=== PATIENT | female | born 1980 | race Caucasian/White ===

== ENCOUNTER → 2020-10-15 00:40 | Outpatient (CLI) | payer OTHER, SELFPAY ==
[2020-10-15 18:53] LABS: SARS-CoV-2 RNA PCR Negative
== END ==
PROVIDERS: PCP Family Medicine; Visit Provider Surgery Plastic and Reconstructive Surgery
DX: Z01.812 Encounter for preprocedural laboratory examination (principal); Z20.822 Contact with and (suspected) exposure to COVID-19
CPT/HCPCS: C9803; U0003; U0005

== ENCOUNTER 2020-10-18 01:23 | Day surgery (SDC) | payer OTHER, SELFPAY ==
[2020-10-10 15:11] VITALS: BMI 21.6
--- NOTE | 2020-10-17 08:01 | WPDANESEPPF ---
Anes - Initial Pre Proc Eval Procedure: Operation Date: 10/18/20 07:30 Proposed Procedures p Abdominoplasty - Tavo Stanton MD Date/Time: 10/17/20 08:01 Surgeon: Tavo Stanton MD Pre Op Diagnosis: skin laxity Patient Data Age: 40 Gender: F Height: 1.69 m Weight: 61.69 kg Allergies Allergy/AdvReac Type Severity Reaction Status Date / Time buspirone Allergy Intermediate vomiting Verified 10/18/20 06:36 Home Medications Medication Instructions Recorded Confirmed Type bupropion HCl 75 mg tablet 75 mg PO BID #60 tablet 08/24/20 10/10/20 Rx dextroamphetamine-amphetamine 10 10 mg PO BID #60 tablet 08/24/20 10/10/20 Rx mg tablet alprazolam 0.25 mg tablet 0.25 mg PO TID PRN #90 tablet 09/28/20 10/10/20 Rx docusate sodium 100 mg capsule 100 mg PO DAILY #14 cap 10/03/20 10/10/20 Rx ondansetron HCl 4 mg tablet 4 mg PO Q8H #28 tablet 10/03/20 10/10/20 Rx carisoprodol 350 mg tablet 350 mg PO TID PRN #21 tablet 10/05/20 10/10/20 Rx oxycodone-acetaminophen 5 mg-325 1 tablet PO Q6H PRN #15 tablet 10/05/20 10/10/20 Rx mg tablet Patient hx anesthesia problems: none Family hx anesthesia problems: none PMFSH Past Medical History Medical History (Updated 10/17/20 @ 08:02 by Parmjit Cowart DO) ADD (attention deficit disorder) without hyperactivity Anxiety PONV (postoperative nausea and vomiting) Surgical History Surgical History (Updated 10/17/20 @ 08:02 by Parmjit Cowart DO) History of breast augmentation Social History Social History (Updated 10/07/20 @ 13:19 by Adina Payton) Social History: Smoking packs per day: 0.5 Smoking cigarettes per day: 10.0 Years smoked: 2 Smoking pack-years: 1.00 Smoking status: Former smoker Tobacco type: cigarettes Second hand tobacco smoke exposure: No Smoking end date: 08/05/14 Alcohol intake: current Drinks per week: 1 Substance use: never Substance use type: does not use Living arrangements: with family Additional living arrangements comments: AND 3 CHILDREN Gender identity (if verbalized by the patient): Female Spiritual care concerns: No Anes - Eval Final PreProcedure Day of Procedure 10/17/20 08:01 Patient weight: normal Heart: regular rate and rhythm Lungs: clear to auscultation and normal air movement Airway: Mallampati scale class II Neurological: alert and oriented Last oral intake: >/= 8 hours ASA classification: II Emergent: no Anesthetic plan: proceed Anesthesia type and monitoring: general ETT and standard monitoring Informed Consent: The patient's anesthetic plan and its attendant risks and benefits were discussed with the patient/family/POA. Questions were solicited and answers provided to the satisfaction of the patient/family/POA.
[2020-10-18] VITALS (9 sets, daily range): BP systolic 93–120; BP diastolic 58–78; PULSE 67–86; RESP 12–20; TEMP 36.2–36.6; O2SAT 99–100
[2020-10-18 06:45] LABS: Urine Cotinine NEGATIVE
[2020-10-18] MEDS: LACTATED RINGERS 1,000 ML 30 ML IV CONT ×2 (06:54→09:57)
--- NOTE | 2020-10-18 06:54 | WPDHPUPDATE1 ---
History and Physical Update Update Date/Time: 10/18/20 06:54 History and Physical has been reviewed, including an updated exam of the patient. There are NO changes in the patient's condition. Risks, benefits, and alternatives have been discussed and questions answered. Patient agrees to proceed with procedure.
--- NOTE | 2020-10-18 07:07 | PM.PROC ---
Procedure Note - Detailed Date of procedure: 10/18/20 Pre-op diagnosis: skin laxity Post-op diagnosis: same Procedure performed: Progressive tension abdominoplasty Description of procedure: She is here today for abdominoplasty. Previously and again today the risks, benefits, alternatives were discussed in extensive detail. I wanted her to be very realistic about the risks involved as well as expectations. We discussed aftercare and what to monitor for. I was very upfront about the risks of wound breakdown leading to loss of skin, open wounds, and need for additional procedures with permanent abdominal deformity. We discussed DVT/PE risks and management. Made sure answered all of her questions to her satisfaction today and consent was obtained. She was marked in the preoperative holding area with their verification. The patient was taken to the operating room placed supine on the operating table. Anesthesia was provided by anesthesiology. A escalante catheter was started. She was prepped and draped in a standard sterile fashion. A surgical time-out was taken. I placed the patient in a flexed position to verify the upper and lower markings would reach. I then placed her supine. A thorough abdominal examination was completed. Stab incisions were made and used tumescent solution. A 10 blade was used to make the upper incision. I continued dissection down to the level of fascia. Elevated just what was necessary for repair of the diastasis and discontinuous undermining otherwise. I then again flexed the bed to verify the upper skin flap would reach the lower markings without tension. Once verified I placed her supine once again and a 10 blade used to make the lower incision. I elevated up to level the umbilicus and left the umbilicus intact on a well-vascularized stalk. The intervening tissue was removed. A 2 mm blunt cannula and Exparel which was mixed 20 cc in 100 cc for a total volume of 120 cc I injected deep to the fascia bilaterally as well as along the incision lines. I plicated the diastasis recti using 0 PDO stratafix barbed suture. This was in 2 separate layers using 2 separate sutures as well. I repaired around the umbilicus leaving plenty of room for well-vascularized stalk of the umbilicus with 2-0 PDS. The patient was flexed and starting from superior to inferior began plication using 2-0 Vicryl to obliterate all space in a standard progressive tension fashion. At the umbilicus I marked out the location of the skin and inset this with 3-0 Monocryl and 4-0 nylon. I continued the remainder of the plication using 2-0 Vicryl until I reached my lower planned scar line. I trimmed any excess skin of the upper flap making sure this was a tension-free closure. I then approximated using a 3 point suture with 2-0 Vicryl followed by 3-0 stratafix ,running subcuticular 4-0 Monocryl, and tissue glue. Fluffs and an abdominal binder were placed. The patient was transferred to the bed in a flexed position. Awoken and taken to the PACU without difficulty. All instrument and sponge counts were correct at the end of the case. Anesthesia: GLMA Surgeon: Tavo Stanton MD Estimated blood loss (mL): 20 Drains: No Packing: No Pathology: none sent Complications: No immediate complications Condition: stable Disposition: PACU Findings: Tissue removed 808 grams
[2020-10-18] MEDS: SCOPOLAMINE 1.5 MG PATCH TRANSDERM (07:09)
[2020-10-18] MEDS: FAMOTIDINE 20 MG/2 ML VIAL IV PUSH (07:09)
[2020-10-18] MEDS: ceFAZolin 2 GM/D5W 50 ML 2 GM/50 ML BAG IVPB (07:28)
--- NOTE | 2020-10-18 09:41 | SUR.OPER ---
URINE:400cc EBL:75cc
[2020-10-18] MEDS: fentaNYL CITRATE INJ (*CRX) 100 MCG/2 ML VIAL 25 MCG IV PUSH ×3 (10:19→10:29)
[2020-10-18] MEDS: LACTATED RINGERS 1,000 ML 125 ML IV CONT (11:44)
[2020-10-18] MEDS: MORPHINE SULFATE (*CRX) 2 MG/ML INJ IV PUSH ×4 (11:45→23:24)
[2020-10-18] MEDS: carisoprodoL (*CRX) 350 MG TABLET PO ×2 (11:45→17:29)
--- NOTE | 2020-10-18 11:52 | OBPPTRN ---
1103 Patient transferred to post room #285 via bed. Oriented to unit, room, information board, admission packet and security measures. Patient verbalizes understanding.
[2020-10-18] MEDS: oxyCODONE/ACETAMINOPHEN (*CRX) 5-325 MG TABLET PO ×2 (14:59→21:00)
[2020-10-18] MEDS: IBUPROFEN 600 MG TABLET PO (16:14)
[2020-10-18] MEDS: buPROPion HCL 75 MG TABLET PO (17:29)
[2020-10-18] MEDS: ENOXAPARIN 40 MG/0.4 ML SYRINGE SUB-Q (17:29)
[2020-10-18] MEDS: ONDANSETRON INJ 4 MG/2 ML VIAL IV PUSH (20:42)
[2020-10-18] MEDS: DOCUSATE SODIUM 100 MG CAPSULE PO (21:01)
[2020-10-19] VITALS: BP 94/54; PULSE 75; RESP 16; TEMP 36.5; O2SAT 100
[2020-10-19] MEDS: carisoprodoL (*CRX) 350 MG TABLET PO ×2 (00:02→05:48)
[2020-10-19] MEDS: IBUPROFEN 600 MG TABLET PO ×2 (00:03→08:38)
[2020-10-19] MEDS: oxyCODONE/ACETAMINOPHEN (*CRX) 5-325 MG TABLET PO ×2 (03:00→08:38)
[2020-10-19 04:00] VITALS: BP 100/56; PULSE 75; RESP 16; TEMP 36.6; O2SAT 99
[2020-10-19] MEDS: MORPHINE SULFATE (*CRX) 2 MG/ML INJ IV PUSH (04:21)
--- NOTE | 2020-10-19 07:16 | WPDPN ---
Progress Note: A&P Assessment and Plan (1) Skin laxity: Code(s): L57.4 - Cutis laxa senilis Status: Acute Assessment and Plan: She is doing very well after progressive tension abdominoplasty. Will discharge home. Follow up in 1 week. Today we spent nearly 20 minutes discussing the care. What monitor for. Activity limitations. I will see her back. Call with any questions or concerns. Review of Systems Review of Systems: All systems reviewed & are unremarkable except as noted in HPI and below Exam Narrative: Exam Narrative: Abdomen is healing well. There is no signs of infection. No hematoma. No seroma. Good color and capillary refill. No calf tenderness. Negative Homans. Objective Data Vital Signs Vital Signs: Vital Signs - 24 hr 10/18/20 09:57 10/18/20 10:05 10/18/20 10:20 Temperature 36.4 C L Pulse Rate 86 73 68 Respiratory Rate 12 12 12 Blood Pressure 118/78 115/73 120/75 Pulse Oximetry 100 100 100 10/18/20 10:35 10/18/20 10:50 10/18/20 11:16 Temperature 36.2 C L Pulse Rate 69 80 67 Respiratory Rate 12 18 20 Blood Pressure 101/67 110/69 110/71 Pulse Oximetry 99 100 100 10/18/20 15:50 10/18/20 20:00 10/19/20 00:00 Temperature 36.4 C 36.6 C 36.5 C Pulse Rate 68 80 75 Respiratory Rate 12 16 16 Blood Pressure 112/67 93/58 L 94/54 L Pulse Oximetry 100 99 100 10/19/20 04:00 Temperature 36.6 C Pulse Rate 75 Respiratory Rate 16 Blood Pressure 100/56 L Pulse Oximetry 99 Intake/Output Intake/Output: Intake & Output 10/16/20 10/17/20 10/18/20 10/19/20 23:59 23:59 23:59 23:59 Intake Total 3200 800 Output Total 2850 550 Balance 350 250 Meds/Results Medications: Active Medications Generic Name Dose Route Start Last Admin Trade Name Freq PRN Reason Stop Dose Admin Alprazolam 0.25 mg 10/18/20 10:55 Alprazolam (*Crx) 0.25 Mg Tablet PO TID PRN anxiety Bupropion HCl 75 mg 10/18/20 17:00 10/18/20 17:29 Bupropion Hcl 75 Mg Tablet PO 75 mg BID FRANCINE Administration Carisoprodol 350 mg 10/18/20 12:00 10/19/20 05:48 Carisoprodol (*Crx) 350 Mg Tablet PO 350 mg Q6HR FRANCINE Administration Docusate Sodium 100 mg 10/18/20 21:00 10/18/20 21:01 Docusate Sodium 100 Mg Capsule PO 100 mg Q12HR FRANCINE Administration Enoxaparin Sodium 40 mg 10/18/20 17:00 10/18/20 17:29 Enoxaparin 40 Mg/0.4 Ml Syringe SUB-Q 40 mg DAILY@1700 FRANCINE Administration Lactated Ringer's 1,000 mls @ 125 mls/hr 10/18/20 10:20 10/19/20 03:05 Lr - Lactated Ringers Iv IV CONT Not Given .Q8H FRANCINE Ibuprofen 600 mg 10/18/20 16:08 10/19/20 00:03 Ibuprofen 600 Mg Tablet PO 600 mg TID PRN Administration Cramping Morphine Sulfate 2 mg 10/18/20 10:19 10/19/20 04:21 Morphine Sulfate (*Crx) 2 Mg/Ml Inj IV PUSH 2 mg Q2H PRN Administration Pain Ondansetron HCl 4 mg 10/18/20 10:19 10/18/20 20:42 Ondansetron Inj 4 Mg/2 Ml Vial IV PUSH 4 mg Q6H PRN Administration Nausea Oxycodone/Acetaminophen 1 - 2 tablet 10/18/20 10:19 10/19/20 03:00 Oxycodone/Acetaminophen (*Crx) 5-325 Mg Tablet PO 2 tablet Q6H PRN Administration Pain Subjective Date/time seen: 10/19/20 07:16 She states she is doing very well. No complaints. Pain is controlled. No fevers or chills. No nausea vomiting. No shortness of breath. No chest pain. No calf tenderness.
--- NOTE | 2020-10-19 07:18 | P.DS_ITS ---
DS: Admitting Diagnosis Admitting Diagnosis Admitting Diagnosis: Skin laxity DS: Discharge Diagnosis Discharge Diagnosis (1) Skin laxity: Code(s): L57.4 - Cutis laxa senilis Status: Acute DS: Summary Hospital Course Hospital Course: she underwent progressive tension abdominoplasty. Postoperatively has done well. Ambulating. Pain controlled. Tolerating diet. Will discharge home. Time Spent with Patient Time attestation: Total time spent providing and/or coordinating discharge services: 20 minutes Exam Narrative: Exam Narrative: Abdomen is healing well. There is no signs of infection. No hematoma. No seroma. Good color and capillary refill. No calf tenderness. Negative Homans. Discharge Plan Discharge Patient Disposition: Home, Self-Care Discharge Instructions: POST OPERATIVE DISCHARGE INSTRUCTIONS FOR Cuauhtemoc STANTON M.D. [facility] [address] [place] [address] * No driving for 24 hours after anesthesia and while you are taking pain medication. * Take all prescribed medication as directed * Diet as tolerated. * No lifting or activity that raises blood pressure for 48 hours. * Regular walking / ambulation. * No showering until directed to. Once you shower do not take pain medication before showering as the combination of medication and heat may cause you to feel dizzy or pass out. * No pools or tubs for 2 weeks. * Call with any questions or concerns. * Slowly stand up straight as tolerated over the week. * No lifting more than 20 pounds or straining for 6 weeks. * Dressing Care: May shower. If you have any questions or concerns, please call the office . If it is after hours you will be directed to the centralized traffic control operator exchange. Shortness of breath, chest pain, or other medical emergency dial 911 / proceed to the Emergency Room. Remove the Scopolamine patch that was placed behind your left ear in 72 hours or less. Wash your hands after touching. Stand Alone Forms: General Discharge Instructions Follow-up/Referrals: Tavo Stanton MD [Physician] - 1 Week Discharge Medications: Continued ondansetron HCl [Zofran] 4 mg tablet 4 mg PO Q8H Qty: 28 RF: 0 docusate sodium [Colace] 100 mg capsule 100 mg PO DAILY Qty: 14 RF: 0 carisoprodol [Soma] 350 mg tablet 350 mg PO TID PRN (Reason: muscle pain) Qty: 21 RF: 0 oxycodone-acetaminophen [Percocet] 5-325 mg tablet 1 tablet PO Q6H PRN (Reason: pain) Qty: 15 RF: 0 bupropion HCl 75 mg tablet 75 mg PO BID Qty: 60 RF: 2 dextroamphetamine-amphetamine [Adderall] 10 mg tablet 10 mg PO BID Qty: 60 RF: 0 alprazolam 0.25 mg tablet 0.25 mg PO TID PRN (Reason: anxiety) Qty: 90 RF: 0
--- NOTE | 2020-10-19 08:14 | WPDANESPN ---
Anes - Prog Note Post-Op Date/Time: 10/19/20 08:14 Cardiovascular status: normal Respiratory status: normal Airway patency: baseline Mental status: baseline Post-Op hydration status: normal Vital Signs: Last Vital Signs Temp 36.6 C 10/19/20 04:00 Pulse 75 10/19/20 04:00 Resp 16 10/19/20 04:00 BP 100/56 L 10/19/20 04:00 Pulse Ox 99 10/19/20 04:00 Pain Score (VAS): 2 I/O: Intake & Output 10/18/20 10/19/20 10/19/20 23:59 07:59 15:59 Intake Total 2900 800 Output Total 2650 550 Balance 250 250 Post-procedural complaints: none Patient Feedback: Patient satisfied with anesthetic care.
[2020-10-19] MEDS: DOCUSATE SODIUM 100 MG CAPSULE PO (08:38)
[2020-10-19] MEDS: buPROPion HCL 75 MG TABLET PO (08:38)
[2020-10-19 08:49] VITALS: BP 100/47; PULSE 75; PULSE 88; RESP 16; TEMP 36.7; O2SAT 100; O2SAT 99
== END 2020-10-19 09:45 | disposition home or self-care (01) ==
LOC: ANHSURGERY 07:09 → ANHOB2 10:57
PROVIDERS: PCP Family Medicine; Visit Provider Surgery Plastic and Reconstructive Surgery
PROC: (CPT 15830; principal; 2020-10-18 07:30)
DX: Z41.1 Encounter for cosmetic surgery (principal); L57.4 Cutis laxa senilis; F98.8 Other specified behavioral and emotional disorders with onset usually occurring in childhood and adolescence; F41.9 Anxiety disorder, unspecified; Z79.899 Other long term (current) drug therapy; Z87.891 Personal history of nicotine dependence
CPT/HCPCS: 15830; 15847; 80307; 99199; A9270; C9290; J0171; J0690; J1100; J1170; J1650; J2250; J2270; J2405; J2704; J2710; J3010; J7120